=== PATIENT | male | born 1935 | race Caucasian/White ===

== ENCOUNTER → 2016-06-16 | Outpatient (CLI) | payer MEDICARE, BC ==
[~2016-06-16] MED LIST: IOHEXOL 300 MG/ML 100ml INJECTION ONE; NORMAL SALINE 100 ML ONE; SALINE FLUSH 10ml SYRINGE ONE
--- NOTE | 2016-06-16 11:03 | DI ---
Indication: ITS.REASON: R10.9 ABD PAIN PROCEDURE: CT ABD/PELVIS W/CONTRAST ONLY: Encounter: Initial Comparison: None Technique: Axial CT images were performed through the abdomen and pelvis after the administration of intravenous contrast. Coronal and sagittal two-dimensional reformats. Automated Exposure Control and Iterative Reconstruction dose reducing techniques were utilized. Contrast: Omnipaque 300 98 mL Findings: Mild atelectasis or scarring in both lower lobes. Heart is mildly enlarged. The liver appears normal. The gallbladder, spleen, pancreas and adrenal glands are normal. 3 mm interpolar area nonobstructing left renal stone. Large right superior pole renal cyst extending into the pelvis measuring 5.7 cm in diameter there is also a 5 to 6 mm lower pole right renal stone. No abdominal or pelvic lymphadenopathy. Infrarenal abdominal aortic ectasia at 2.9 cm in diameter. Scattered atherosclerotic plaque in the arterial vasculature. Bladder is normal. No free fluid or evidence of a bowel obstruction.. Bone windows show mild degenerative change and scoliosis in the spine. Impression: 1. No acute disease process seen in the abdomen or pelvis. 2. Bilateral nephrolithiasis. 3. Abdominal aortic ectasia. .
== END ==
LOC: IMA 08:31
PROVIDERS: ATTEND Family Medicine
DX: N20.0 Calculus of kidney (principal)
CPT/HCPCS: 74177; J7050; Q9967

== ENCOUNTER → 2016-06-22 | Outpatient (CLI) | payer MEDICARE, BC ==
--- NOTE | 2016-06-22 08:40 | DI ---
Indication: ITS.REASON: R10.9 ABD PAIN PROCEDURE: US ABDOMEN COMPLETE: Encounter: Initial Comparison: CT abdomen and pelvis dated June 16, 2016 Technique: Grayscale and color Doppler sonographic imaging of the abdomen was performed. Findings: Hepatic parenchyma is homogeneous without evidence for focal mass. The gallbladder shows borderline wall thickening at just over 3 mm, but is otherwise normal. No cholelithiasis or sonographic Shipman's sign. Both the intra and extrahepatic biliary system are of normal caliber with the common duct measuring 5 mm in dimension. Visualized portions of the head and body of the pancreas are unremarkable. Both kidneys are present without collecting system dilatation. The right measures 10 cm in length and left measures 10 cm. Prominent right renal cyst again noted. The spleen is unremarkable. The visualized portions of the IVC are unremarkable. Calcified plaques in the abdominal aorta. No free fluid. Impression: Mild gallbladder wall thickening of uncertain significance. No cholelithiasis or sonographic evidence of acute cholecystitis. .
== END ==
LOC: IMA 06:28
PROVIDERS: ATTEND Family Medicine
DX: K82.8 Other specified diseases of gallbladder (principal)